=== PATIENT | female | born 1950 ===

== ENCOUNTER 2023-05-20 14:00 | Outpatient (RCR) | payer MEDICARE, OTHER, SELFPAY | END 2023-06-27 12:53 | disposition home or self-care (01) | PROVIDERS: Visit Provider Nurse Practitioner Family | DX: M54.50 Low back pain, unspecified (principal); R53.81 Other malaise; M54.6 Pain in thoracic spine; Z51.89 Encounter for other specified aftercare | CPT/HCPCS: 97110; 97140; 97161 ==